=== PATIENT | male | born 1960 | race African-American/Black ===

== ENCOUNTER 2019-04-25 08:53 | Day surgery (SDC) | payer OTHER ==
[2019-04-25] VITALS (13 sets, daily range): BP systolic 98–175; BP diastolic 53–85
[~2019-04-25] VITALS: Ht 182.9 cm; Wt 99.8 kg
[~2019-04-25 08:53] MED LIST: CLINDAMYCIN 600 MG/50 ML IV ONE; celeBREX 200mg Cap **SURGERY PATIENTS ONLY ORAL ONE; oxyCONTIN 20mg tab ORAL ONE
[2019-04-25] MEDS ORDERED: celeBREX 200mg Cap **SURGERY PATIENTS ONLY ORAL ONE (10:25)
[2019-04-25] MEDS ORDERED: oxyCONTIN 20mg tab ORAL ONE (10:25)
--- NOTE | 2019-04-25 10:35 | Anethesia Preoperative Eval ---
Anesthesia Pre-op PMH/ROS General Date of Evaluation: Apr 25, 2019 Anesthesiologist: Cisco ASA Score: ASA 2 Mallampati Score Class I : Soft palate, uvula, fauces, pillars visible Class II: Soft palate, uvula, fauces visible Class III: Soft palate, base of uvula visible Class IV: Only hard plate visible Mallampati Classification: Class III Surgeon: Rachid Diagnosis: L.eft quadriceps tear Surgical Procedure: Left quadriceps repair Anesthesia History: none Family History: no anesthesia problems Allergies: Coded Allergies: PENICILLINS (Verified Allergy, Unknown, 04/24/19) Medications: see eMAR Patient NPO?: Yes NPO Date: Apr 24, 2019 NPO Time: 22:00 Past Medical History Cardiovascular: Reports: HTN; Denies: CAD, [place], valve dz, arrhythmia, other Pulmonary: Denies: asthma, COPD, MICAH, other Gastrointestinal/Genitourinary: Reports: GERD; Denies: CRI, ESRD, other Neurologic/Psychiatric: Denies: dementia, CVA, depression/anxiety, TIA, other Endocrine: Reports: DM; Denies: hypothyroidism, steroids, other HEENT: Denies: cataract (L), cataract (R), glaucoma, [place] (L), [place] (R), other Hematology/Immune: Denies: anemia, DVT, bleeding disorder, other Musculoskeletal/Integumentary: Denies: OA, RA, DJD, DDD, edema, other Other: obesity PSxH Narrative: right eye sx Anesthesia Pre-op Phys. Exam Physician Exam Last Vital Signs Date Time Temp Pulse Resp B/P (MAP) Pulse Ox O2 Delivery O2 Flow Rate FiO2 04/25/19 10:20 Room Air 04/25/19 10:02 97.0 77 18 142/75 99 Constitutional: NAD Cardiovascular: RRR Respiratory: CTA Airway Exam Mallampati Score: Class III MO: limited ROM: limited Anesthesia Pre-op A/P Labs see chart Studies Pre-op Studies: EKG - sr Risk Assessment & Plan Assessment: ASA II Plan: GA with adductor nerve block Status Change Before Surgery: No Pre-Antibiotics Drug: Clindamycin 600mg Given Within 1 Hr of Incision: Yes Alissa Antonio MD Apr 25, 2019 10:35
[2019-04-25] MEDS ORDERED: LR 1000ml 1,000 ML IVLG SCH ×2 (11:34→12:42)
[2019-04-25] MEDS ORDERED: LORazepam Inj 2mg/ml 1ml IV PRN ×2 (11:45→12:45)
[2019-04-25] MEDS ORDERED: Ketorolac 30mg Inj IV PRN ×2 (11:45→12:45)
[2019-04-25] MEDS ORDERED: Metoclopramide 10mg/2ml Inj IVP PRN ×2 (11:45→12:45)
[2019-04-25] MEDS ORDERED: fentaNYL 100 mcg/2 mL IV PRN ×2 (11:45→12:45)
[2019-04-25] MEDS ORDERED: DiphenhydrAMINE 50mg/ml Inj IVP PRN ×2 (11:45→12:45)
[2019-04-25] MEDS ORDERED: Midazolam 2mg/2ml Inj IVP PRN ×2 (11:45→12:45)
[2019-04-25] MEDS ORDERED: Hydromorphone 0.5mg/0.5ml inj IVP PRN ×2 (11:45→12:45)
--- NOTE | 2019-04-25 11:53 | Pre-Procedure Note/Attestation ---
Pre-Procedure Note/Attestation Complete Prior to Procedure Planned Procedure: left Procedure Narrative: open quadricep tendon tear Indications for Procedure Pre-Operative Diagnosis: left quadricps tendon tear Attestation I attest that I discussed the nature of the procedure; its benefits; risks and complications; and alternatives (and the risks and benefits of such alternatives ), prior to the procedure, with the patient (or the patient's legal front desk representative). I attest that, if there was a reasonable possibility of needing a blood transfusion, the patient (or the patient's legal front desk representative) was given the [facility] standardized written summary, pursuant to the Eric Avalon Blood Safety Act ([place] Health and Safety Code # 1645, as amended). I attest that I re-evaluated the patient just prior to the surgery and that there has been no change in the patient's H&P, except as documented below: Monty Rashid MD Apr 25, 2019 11:53
--- NOTE | 2019-04-25 11:54 | Operative Note - PDOC ---
Operative Note Operative Note Pre-op Diagnosis: left quadricps tendon tear Procedure: see op report Post-op Diagnosis: same as pre-op plus Operative Findings: consistent w/pre-op dx studies Anesthesia: regional Specimen: none Complications: none Condition: stable Estimated Blood Loss: none Implant(s) used?: No Monty Rashid MD Apr 25, 2019 11:54
[2019-04-25] MEDS ORDERED: HYDROcodone/Acetamin 5/325 tab ORAL PRN (12:00)
[2019-04-25] MEDS ORDERED: HYDROmorphone 1mg/ml Carpuject SUBQ PRN (12:00)
[2019-04-25] MEDS ORDERED: Tylenol #3 tab (300mg/30mg) ORAL PRN (12:00)
[2019-04-25] MEDS ORDERED: Bacitracin 50000 Units Vial ONE (13:45)
[2019-04-25] MEDS ORDERED: NeoSporin Gu Irrig 1ml Amp IRRIG ONE (13:45)
[2019-04-25] MEDS ORDERED: Clindamycin 600mg 50 ML IV ONE (14:07)
[2019-04-25] MEDS ORDERED: fentaNYL 100 mcg/2 mL IV ONE (14:20)
[2019-04-25] MEDS ORDERED: Lidocaine 1% MPF 10mg/ml 5ml ONE (14:20)
[2019-04-25] MEDS ORDERED: Midazolam 2mg/2ml Inj ONE (14:20)
[2019-04-25] MEDS ORDERED: Propofol 200mg/20ml IV ONE (14:20)
[2019-04-25] MEDS ORDERED: Ropivacaine 5mg/ml Vial 30ml INJ ONE (14:25)
[2019-04-25] MEDS ORDERED: NS Irrig 1000ml ONE (14:46)
[2019-04-25] MEDS ORDERED: Sterile Water Irrig 1000ml IRRIG ONE (14:46)
[2019-04-25] MEDS ORDERED: LR 1000ml ONE (14:46)
--- NOTE | 2019-04-25 16:15 | Immediate Post-Op Evaluation ---
Immediate Post-Op Evalulation Immediate Post-Op Evalulation Procedure: Left quadriceps repair Date of Evaluation: Apr 25, 2019 Time of Evaluation: 16:16 IV Fluids: 700 Blood Products: 0 Estimated Blood Loss: 10 Urinary Output: 0 Blood Pressure Systolic: 98 Blood Pressure Diastolic: 53 Pulse Rate: 69 Respiratory Rate: 17 O2 Sat by Pulse Oximetry: 100 Temperature (Fahrenheit): 97.2 Pain Score (1-10): 0 Nausea: No Vomiting: No Complications 0 Patient Status: awake, reacts, patent, none Hydration Status: adequate Drug: Clindamycin 600mh Given Within 1 Hr of Incision: Yes Alissa Antonio MD Apr 25, 2019 16:15
--- NOTE | 2019-04-25 16:16 | 48 Hour Post Anesthesia Eval ---
Post Anesthesia Evaluation Procedure: Left quadriceps repair Date of Evaluation: Apr 25, 2019 Airway: patent Nausea: No Vomiting: No Hydration Status: adequate Cardiopulmonary Status: at baseline Mental Status/LOC: patient returned to baseline Post-Anesthesia Complications: 0 Follow-up care needed: ready to discharge Alissa Antonio MD Apr 25, 2019 16:15
[2019-04-25] MEDS ORDERED: D5 1/2NS 1,000 ML IV SCH (19:00)
--- NOTE | 2019-04-25 22:01 | Operative Note - Dictated ---
DATE OF OPERATION: 04/25/2019 PREOPERATIVE DIAGNOSIS: Left traumatic quad tendon tear. POSTOPERATIVE DIAGNOSIS: Left traumatic quad tendon tear. PROCEDURE: 1. Left open quadriceps tendon repair. 2. Evacuation of the hematoma left knee. 3. Primary repair of medial and lateral retinaculum tear. SURGEON: Monty Rashid M.D. ANESTHESIA: Femoral adductor block with general. INDICATION FOR PROCEDURE: The patient is a pleasant gentleman, who sustained a traumatic quad tear. He was indicative of operative fixation. Risks, limitations, expectations, and complications of the procedure were discussed in detail. All questions addressed. DESCRIPTION OF PROCEDURE: After informed consent was obtained, the patient was brought to the operating room. The patient was placed under general anesthesia with femoral adductor block. Left knee was prepped and draped in a sterile manner. Time-out was performed. There was complete disruption of the extensor mechanism with palpable defect attached to the patella. Anterior skin incision was then made. Medial and lateral skin flaps were created. After the medial and lateral skin flaps were created, there was obvious complete detachment of the quadriceps tendon. There were some fibers more deep that were still attached. Two Krackow stitches were placed through the segment of the quadriceps tendon passed through the patella and tacked to the patellar tendon. This recreated the extensor mechanism continuity. At this point, #1 FiberWire then used to close the medial and lateral retinaculum. This further secured the fixation. Once this was completed, the knee was flexed approximately 60 degrees with no motion at the repair site. The patella was nice and stable at the conclusion of the procedure. The skin was closed using #1 Vicryl suture, 2-0 Vicryl suture, and 3-0 Monocryl sutures. Dermabond and compression dressing was applied. The patient was awoken and taken to recovery room with stable vital signs. ESTIMATED BLOOD LOSS: None. COMPLICATIONS: None. SPECIMENS: None. IMPLANTS: Include #2 FiberWire. Monty Rashid M.D. DR: BLANK JOB#: [id number] CC:
== END 2019-04-25 19:45 | disposition home or self-care (01) ==
LOC: SUR 08:53
DX: S76.112A Strain of left quadriceps muscle, fascia and tendon, initial encounter (principal); X58.XXXA Exposure to other specified factors, initial encounter; Y92.9 Unspecified place or not applicable; I10 Essential (primary) hypertension; K21.9 Gastro-esophageal reflux disease without esophagitis; E66.9 Obesity, unspecified; Z88.0 Allergy status to penicillin; Z68.29 Body mass index [BMI] 29.0-29.9, adult
CPT/HCPCS: 27385; 82962; J1885; J2250; J2704; J2795; J3010; J7120; 94003; 94150; S0077